=== PATIENT | male | born 1980 | race Caucasian/White ===

== ENCOUNTER 2017-09-26 16:02 | Emergency (ER) | payer OTHER ==
[~2017-09-26] VITALS: Wt 102.1 kg
[2017-09-26] MEDS ORDERED: NAPROSYN500 MG PO (17:41)
== END 2017-09-26 17:44 | disposition home or self-care (01) ==
LOC: ED 16:02
DX: M25.461 Effusion, right knee (principal); F17.200 Nicotine dependence, unspecified, uncomplicated; W22.8XXA Striking against or struck by other objects, initial encounter; Y93.89 Activity, other specified; Y92.89 Other specified places as the place of occurrence of the external cause; Y99.8 Other external cause status

== ENCOUNTER → 2017-10-27 | Outpatient (CLI) | payer OTHER ==
[~2017-10-27] MED LIST: NAPROSYN500 MG PO
== END | disposition home or self-care (01) ==
LOC: MRI 13:00
DX: Z01.818 Encounter for other preprocedural examination (principal); M17.11 Unilateral primary osteoarthritis, right knee; S83.206D Unspecified tear of unspecified meniscus, current injury, right knee, subsequent encounter; X58.XXXD Exposure to other specified factors, subsequent encounter